=== PATIENT | female | born 1980 | race Caucasian/White ===

== ENCOUNTER 2020-03-22 04:20 | Inpatient (IN) | payer BC, OTHER ==
[2020-03-21 08:26] VITALS: BMI 24.7
[2020-03-22] MEDS ORDERED: BUPIVACAINE LIPOSOME/PF (EXPAREL) 266 MG/20 ML VIAL ONE (07:40)
[2020-03-22] MEDS ORDERED: PROPOFOL 20 ML ONE (10:40)
[2020-03-22] MEDS ORDERED: MIDAZOLAM HCL 2 MG/2 ML SINGLE DOSE VIAL ONE ×3 (10:40→10:42)
[2020-03-22] MEDS ORDERED: ROCURONIUM BROMIDE 100 MG/10 ML VIAL ONE (10:40)
[2020-03-22] MEDS ORDERED: LIDOCAINE HCL/PF 2% SDV 5ML VIAL ONE (10:41)
[2020-03-22] MEDS ORDERED: HEPARIN NA (PORCINE) 5,000 UNITS/ML 1ML VIAL ONE ×2 (11:43→12:10)
[2020-03-22] MEDS ORDERED: IBUPROFEN 800 MG/8 ML IJ IVPB PRN (11:59)
[2020-03-22] MEDS ORDERED: IBUPROFEN 600 MG TABLET (FP) PO PRN (11:59)
[2020-03-22] MEDS ORDERED: ONDANSETRON 4 MG/2 ML VIAL IVPUSH PRN (11:59)
[2020-03-22] MEDS ORDERED: oxyCODONE HCL 5 MG TABLET PO PRN ×4 (11:59→14:17)
[2020-03-22] MEDS ORDERED: ceFAZolin SODIUM 1 GM VIAL ONE (12:08)
[2020-03-22] MEDS ORDERED: DEXAMETHASONE SOD PHOSPHATE 4 MG/1 ML VIAL ONE (12:08)
[2020-03-22] MEDS ORDERED: ceFAZolin SODIUM 1 GM VIAL IVPB ONE (12:10)
[2020-03-22] MEDS ORDERED: GLYCOPYRROLATE 0.2 MG/1 ML VIAL ONE (13:12)
[2020-03-22] MEDS ORDERED: NEOSTIGMINE METHYLSULFATE 0.5 MG/ML - 10 ML MDV ONE (13:12)
[2020-03-22] MEDS ORDERED: traMADol HCL 50 MG TABLET PO PRN (14:15)
[2020-03-22] MEDS ORDERED: LACTATED RINGERS SOLUTION 1,000 ML IV SCH (14:15)
[2020-03-22] MEDS: ELECTROLYTE-148 SOLN 1,000 ML IV SCH (16:15)
[2020-03-22] MEDS: CEFAZOLIN 1 GM/D5W 1 GM/50 ML BAG IVPB SCH (17:52)
[2020-03-22] MEDS ORDERED: ACETAMINOPHEN 1000 MG/100 ML VIAL (NON FORMULARY) IVPB ONE (18:00)
[2020-03-22] MEDS ORDERED: CEFAZOLIN 1 GM in DEXTROSE 5%-WATER - 50 ML IVPB SCH (18:00)
[2020-03-22] MEDS: ACETAMINOPHEN 325 MG TABLET (FP) PO SCH ×2 (19:56→20:19)
[2020-03-23] MEDS: ELECTROLYTE-148 SOLN 1,000 ML IV SCH ×2 (01:18→13:47)
[2020-03-23] MEDS: CEFAZOLIN 1 GM/D5W 1 GM/50 ML BAG IVPB SCH ×2 (01:18→09:08)
[2020-03-23] MEDS: ACETAMINOPHEN 325 MG TABLET (FP) PO SCH ×3 (01:55→13:50)
[2020-03-23 08:11] LABS: HEMATOCRIT 39.4 % (32.4-45.2); HEMOGLOBIN 13.1 GM/dL (10.7-15.3); MCH 30.6 pg (25.7-33.7); MCHC 33.4 g/dl (32.0-36.0); MEAN CELL VOLUME 91.7 fl (80-96); MEAN PLT VOLUME 7.7 fl (7.5-11.1); PLATELET COUNT 337 K/MM3 (134-434); RBC 4.29 M/mm3 (3.60-5.2); RDW 12.9 % (11.6-15.6); WHITE BLOOD COUNT 8.2 K/mm3 (4.0-10.0)
[2020-03-23] MEDS ORDERED: ENOXAPARIN NA (PORCINE) 40 MG/0.4 ML DISP.SYRIN SQ ONE (12:02)
[2020-03-23 14:14] VITALS: BP 134/82; PULSE 96; TEMP 97.7
== END 2020-03-23 17:35 | disposition home or self-care (01) | DRG 743 ==
LOC: J2C 04:20 → J3W 16:48
PROVIDERS: ADMIT Obstetrics & Gynecology; ATTEND Obstetrics & Gynecology
PROC: 0UT70ZZ Resection of Bilateral Fallopian Tubes, Open Approach (ICD-10-PCS; 2020-03-22)
PROC: 0UT90ZL Resection of Uterus, Supracervical, Open Approach (ICD-10-PCS; principal; 2020-03-22 11:00)
DX: D25.9 Leiomyoma of uterus, unspecified (principal)
CPT/HCPCS: 36415; 84703; 85027; 88309-TC; 94010; 94760; J0131; J1644